=== PATIENT | female | born 2000 | race Caucasian/White ===

== ENCOUNTER 2022-09-19 14:05 | Outpatient (CLI) | payer SELFPAY ==
[2022-09-19 17:51] LABS: Chlamydia DNA Amplified* NOT DETECTED (No Detected); GC DNA Amplified* NOT DETECTED (No Detected)
== END 2022-09-19 14:06 | disposition home or self-care (01) ==
LOC: NFLDREF 14:05
PROVIDERS: Visit Provider Physician Assistant
DX: Z01.419 Encounter for gynecological examination (general) (routine) without abnormal findings (principal); Z11.3 Encounter for screening for infections with a predominantly sexual mode of transmission
CPT/HCPCS: 87491; 87591

== ENCOUNTER 2023-09-03 17:55 | Outpatient (CLI) | payer OTHER, SELFPAY ==
[2023-09-03 23:35] LABS: Chlamydia DNA Amplified* NOT DETECTED (No Detected); GC DNA Amplified* NOT DETECTED (No Detected)
== END 2023-09-03 17:56 | disposition home or self-care (01) ==
LOC: NFLDUCREF 17:55
PROVIDERS: Visit Provider Nurse Practitioner
DX: Z11.3 Encounter for screening for infections with a predominantly sexual mode of transmission (principal)
CPT/HCPCS: 87491; 87591

== ENCOUNTER 2023-11-30 10:17 | Outpatient (CLI) | payer OTHER, SELFPAY | END 2023-11-30 10:18 | disposition home or self-care (01) | LOC: NFLDREF 10:18 | PROVIDERS: Visit Provider Obstetrics & Gynecology | DX: R30.0 Dysuria (principal); R35.0 Frequency of micturition | CPT/HCPCS: 87086; 87186 ==

== ENCOUNTER 2024-05-07 08:34 | Outpatient (CLI) | payer OTHER, SELFPAY | END 2024-05-07 08:35 | disposition home or self-care (01) | LOC: NFLDREF 08:42 | PROVIDERS: Visit Provider Obstetrics & Gynecology | DX: N39.0 Urinary tract infection, site not specified (principal); B96.20 Unspecified Escherichia coli [E. coli] as the cause of diseases classified elsewhere | CPT/HCPCS: 87086 ==

== ENCOUNTER 2024-09-09 11:59 | Outpatient (CLI) | payer OTHER, SELFPAY ==
[2024-09-09 18:49] LABS: Bacterial Vaginosis* Negative (Negative); Candida glab/krus NOT DETECTED (No Detected)
[2024-09-09 19:20] LABS: Chlamydia DNA Amplified* NOT DETECTED (No Detected); GC DNA Amplified* NOT DETECTED (No Detected)
[2024-09-12 10:10] LABS: Pap Test Digital Imaging Done
== END 2024-09-09 12:00 | disposition home or self-care (01) ==
PROVIDERS: Visit Provider Registered Nurse
DX: Z11.3 Encounter for screening for infections with a predominantly sexual mode of transmission (principal); Z12.4 Encounter for screening for malignant neoplasm of cervix
CPT/HCPCS: 81513; 87481; 87491; 87591; 87624; 87625; 87661; 88141; 88142; 88175

== ENCOUNTER 2024-09-11 07:05 | Outpatient (CLI) | payer OTHER, SELFPAY ==
--- NOTE | 2024-09-11 07:15 | CRLHL7_ITS ---
For Patients: As a result of the Century Cures Act, medical imaging exams and procedure reports are released immediately into your electronic medical record. You may view this report before your referring provider. If you have questions, please contact your health care provider. INDICATION: Missing IUD strings COMPARISON: None. TECHNIQUE: 2D braun-scale and color Doppler images were acquired of the pelvis using a transabdominal and transvaginal approach. Transvaginal imaging performed to better visualize the endometrial stripe and ovaries. FINDINGS: Sonographic images demonstrate a normal size and smooth outer contour of the uterus. Uterus measures 8.0 cm in length by 4.8 cm in AP diameter by 5.5 cm in transverse dimension. The myometrium has a normal uniform echotexture. IUD is present in the fundal endometrial canal in good position. The right ovary measures 4.9 x 2.9 x 2.4 cm in size and the left ovary measures 5.1 x 2.1 x 2.9 cm. The ovaries demonstrate normal arterial and venous blood flow on color Doppler analysis. There are no suspicious fluid collections within the cul-de-sac. Multiple ovarian follicles are present bilaterally. Right ovarian volume 18.3 cc. Left ovarian volume 16.0 cc. IMPRESSION: Normal position of an IUD within the endometrial canal. Multiple ovarian follicles bilaterally with increased ovarian volumes. Dictated by Francisco Hardin MD @ 09/11/2024 8:39:26 AM (Electronically Signed)
== END 2024-09-11 07:06 | disposition home or self-care (01) ==
PROVIDERS: Visit Provider Registered Nurse
DX: T83.32XA Displacement of intrauterine contraceptive device, initial encounter (principal); N83.01 Follicular cyst of right ovary; N83.02 Follicular cyst of left ovary
CPT/HCPCS: 76830; 76856